=== PATIENT | male | born 1945 | race Caucasian/White ===

== ENCOUNTER 2021-08-31 17:32 | Inpatient (IN) | payer OTHER ==
[~2021-08-31] VITALS: Ht 180.3 cm; Wt 92.5 kg
[~2021-08-31 17:32] MED LIST: ASPI81EC PO; CAPS28.3TC TOP; ETOD400 PO; LISINOPRIL-HCT1 EAC1 PO; OMEP20ER PO; SILD50TA PO
[2021-08-31 18:47] LABS: Hematocrit 43.4 % (37.0-53.0); Hemoglobin 14.8 g/dL (13.5-17.5); Mean Corpuscular HGB 30.1 pg (26.0-34.0); Mean Corpuscular HGB Conc 34.1 g/dL (31.5-36.5); Mean Corpuscular Volume 88 fL (80-100); Mean Platelet Volume 9.2 fL (9.1-12.4); Platelet Count 203 K/mm3 (150-400); RDW Coefficient Variation 13.2 % (11.7-14.2); RDW Standard Deviation 43.3 fL (35.1-46.3); Red Blood Cell Count 4.91 M/mm3 (4.30-5.90)
--- NOTE | 2021-08-31 18:50 | NUR ---
LATE ENTRY 1725 - RECEIVED PT A DIRECT ADMIT FROM SD FOR POSSIBLE L LEG DVT. RECEIVED REPORT FROM CANDICE SD NURSE. PT PLACED IN BED, MADE COMFORTABLE & ORIENTED TO ROOM AND UNIT ROUTINE. PIV IN L AC, WAS PLACED BY SD PRIOR TO TRANSPORT. NOTIFIED , MADE AWARE OF PT'S ARRIVAL TO UNIT. ADMIT DONE.
[2021-08-31 19:00] LABS: Bun/Creatinine Ratio 20.4 (12.0-20.0); Calcium, Blood 9.8 mg/dL (8.5-10.1); Creatinine, Blood 1.08 mg/dL (0.60-1.20); Potassium, Blood 4.4 mmol/L (3.5-5.5)
[2021-08-31 19:55] LABS: International Normalized Ratio 1.04; Prothrombin Time Results 10.9 Sec (9.7-11.5)
[2021-08-31] MEDS ORDERED: FINA5 PO (22:08)
[2021-08-31] MEDS ORDERED: Vitamin D1000 UNI1 PO (22:08)
[2021-08-31] MEDS ORDERED: LYRICA225 M1 PO (22:10)
[2021-09-01 05:11] LABS: Hematocrit 42.9 % (37.0-53.0); Hemoglobin 14.6 g/dL (13.5-17.5); Mean Corpuscular HGB 30.2 pg (26.0-34.0); Mean Corpuscular Volume 89 fL (80-100); Mean Platelet Volume 9.5 fL (9.1-12.4); NRBC ABSOLUTE 0.02 K/mm3 (0.00-0.02); NRBC Auto 0.2 /100 WBC (0.0-0.2); Platelet Count 189 K/mm3 (150-400); RDW Coefficient Variation 13.2 % (11.7-14.2); RDW Standard Deviation 43.2 fL (35.1-46.3); Red Blood Cell Count 4.84 M/mm3 (4.30-5.90)
[2021-09-01 12:14] LABS: SARS-Cov-2 (COVID-19) PCR, MMC NEGATIVE (NEGATIVE)
--- NOTE | 2021-09-01 15:46 | NUR ---
PATIENT WAS TAKEN TO BAGGAGE CLERK. THIS AFTERNOON, LAB CALLED TO REPORT A CRITIAL PPT. THIS WAS PASSED ONTO PHARMACY. DIRECTION TO STOP HEPARIN FOR NOW AND THEY WILL CALL WITH WHEN TO START. HEP WAS STOPPED. BY THE TIME LAB CALLED FOR RESTART, [facility] STATED TO LEAVE OFF, BECAUSE THE PATIENT WOULD BE GOING TO BAGGAGE CLERK NEXT. HEP WAS NOT RESTARTED, BUT THE NEW BAG WAS SENT ALONG WITH THE PATIENT TO THE BAGGAGE CLERK.
--- NOTE | 2021-09-01 16:54 | NUR ---
,patient returned from the cytogenetics laboratory manager right before 5pm. his procedure was done venously, so pcu bed was not needed. DUMP GROUNDS CHECKER REPORTS A 16 TAMAZIGHT CATH WAS USED TO REMOVE A LARGE PORTION OF CLOTTING. PATIENT HAS ONE PURSE STRING SUTURE BEHIND THE RIGHT KNEE. MARISOL FROM [facility] [facility] [facility] WILL COME TOMORROW TO REMOVE THE SUTURE. BP 141/90, PULSE 74 O2 96. HE RECEIVED 3 MG VERSED, AND 150MCG OF FETENYL IN THE DUMP GROUNDS CHECKER. PATIENT REPORTS BEING SOMEWHAT GROGGY, BUT SPEECH IS CLEAR AND HE IS ALERT AND ORIENTATED. THERE IS A PRESSURE DRESSING ON THE LEG THAT CAN COME OFF AT BEDTIME TONIGHT. HEPARIN WILL BE DISCONTINUED AT THIS POINT AND THE DOCTOR IS PUTTING IN AN ORDER ORAL XARELTO. PATIENT BACK IN BED WAITING FOR DINNER.
--- NOTE | 2021-09-01 18:24 | NUR ---
PATIENT HAD A VENOUS TIMBER RIDER PROCEDURE IN THE LEFT LEG TO REMOVE CLOT. TIMBER RIDER REPORTED A LARGE CLOT WAS EXTRACTED. HE IS DOING WELL AFTER PROCEDURE. PATIENT IS NOT IN PAIN. HE TOLERATED HIS DINNER WELL. SEE NURSING NOTE FOR MORE DETAIL OF TIMBER RIDER IF NEEDED.
--- NOTE | 2021-09-02 05:04 | NUR ---
SHIFT SUMMARY PT HAD AN UNEVENTFUL NIGHT. SLEPT THROUGH MUCH OF THE EVENING. DRESSING TO R LEG BUSINESS ACCOUNT EXECUTIVE INSERTION SITE REMOVED. SINGLE STITCH REMAINS AT SITE. PT HAS DENIED PAIN. SWELLING AND REDNESS TO RLE IMPROVING. XARELTO STARTED WITH 2100 MEDICATIONS ORDERED. TELEMETRY SR 76. VITAL SIGNS STABLE. PT RESTING COMFORTABLY AT THIS TIME. HOPEFUL TO D/C HOME TODAY.
[2021-09-02] MEDS ORDERED: Acetaminophen325 M1 PO (11:44)
[2021-09-02] MEDS ORDERED: XARELTO15 MG PO (11:45)
[2021-09-02] MEDS ORDERED: XARELTO20 MG PO (11:46)
== END 2021-09-02 12:58 | disposition home or self-care (01) | DRG 272 ==
LOC: MEDS 17:32
PROVIDERS: Internal Medicine; Radiology Diagnostic Radiology; ADMIT Internal Medicine
PROC: 06CC3ZZ Extirpation of Matter from Right Common Iliac Vein, Percutaneous Approach (ICD-10-PCS; principal; 2021-09-01)
PROC: 06CM3ZZ Extirpation of Matter from Right Femoral Vein, Percutaneous Approach (ICD-10-PCS; 2021-09-01)
PROC: 06CF3ZZ Extirpation of Matter from Right External Iliac Vein, Percutaneous Approach (ICD-10-PCS; 2021-09-01)
DX: I82.411 Acute embolism and thrombosis of right femoral vein (principal); I82.461 Acute embolism and thrombosis of right calf muscular vein; Z20.822 Contact with and (suspected) exposure to COVID-19; I10 Essential (primary) hypertension; N40.0 Benign prostatic hyperplasia without lower urinary tract symptoms; G89.29 Other chronic pain; M54.50 Low back pain, unspecified; K21.9 Gastro-esophageal reflux disease without esophagitis; Z87.891 Personal history of nicotine dependence; Z79.82 Long term (current) use of aspirin; Z79.899 Other long term (current) drug therapy
CPT/HCPCS: 36415; 37187; 37252; 75820; 75825; 76937; 80048; 85027; 85303; 85306; 85610; 85730; 96374; 96376; 99152; 99153; A9270; C1753; C1757; C1769; C1887; C1894; G0378; J1644; J2250; J3010; J7030; J7040; Q9967; U0004